=== PATIENT | female | born 1960 | race Caucasian/White ===

== ENCOUNTER 2022-08-29 08:04 | Emergency (ER) | payer OTHER ==
[2022-08-29 08:40] LABS: BASO # 0.1 10*3/uL (0.0-0.1); BASO % 0.4 % (0.0-1.0); EOS # 0.2 10*3/uL (0.0-0.4); EOS % 1.3 % (1.0-4.0); LYMPH # 1.6 10*3/uL (1.3-4.4); LYMPH % 12.8 % (27.0-41.0); MEAN CELL VOLUME 103.4 fl (81.0-99.0); MEAN CORPUSCULAR HGB 34.2 pg (27.0-31.0); MEAN CORPUSCULAR HGB CONC 33.1 g/dl (33.0-37.0); MEAN PLATELET VOLUME 8.9 fl (9.6-12.3); MONO % 8.2 % (3.0-9.0); NEUT # 9.7 10*3/uL (2.3-7.9); NEUT % 76.7 % (47.0-73.0); PLATELET COUNT AUTOMATED 588 10*3/uL (130-400); RED BLOOD COUNT 3.48 10*6/uL (4.10-5.10); RED CELL DISTRI WIDTH 14.9 % (0-14.5); WHITE BLOOD COUNT 12.6 10*3/uL (4.8-10.8)
[2022-08-29 08:49] LABS: ACT PARTIAL THROMBO TIME 35.6 SECONDS (20.0-32.1); INTERNATIONAL NORM RATIO 1.1 (2.0-3.5)
[2022-08-29 08:57] LABS: ALKALINE PHOSPHATASE 93 U/L (46-116); CHLORIDE 100 mmol/L (98-107); LIPASE 48 U/L (12-53); POTASSIUM 2.6 mmol/L (3.4-5.1); SGPT/ALT 10 U/L (10-49); TOTAL PROTEIN 5.6 gm/dL (6.0-8.0)
[2022-08-29 08:58] LABS: BUN < 5 mg/dl (9-23)
== END 2022-08-29 13:55 | disposition short-term general hospital (02) ==
LOC: ED 08:04
PROVIDERS: Emergency Medicine
DX: R53.1 Weakness (principal); R91.8 Other nonspecific abnormal finding of lung field; E87.6 Hypokalemia